=== PATIENT | male | born 1980 | race Caucasian/White ===

== ENCOUNTER 2019-02-03 14:09 | Inpatient (IN) ==
[2019-02-03] MEDS ORDERED: NS 1,000 ML IV ONE ×3 (15:13→18:14)
[2019-02-03] MEDS ORDERED: HUMULIN R IV ONE (15:13)
[2019-02-03 15:34] LABS: BASO# 0.08 X1000 (0.0-0.2); BASO% 0.4 % (0.0-0.8); EOS# 0.15 X1000 (0.0-0.7); EOS% 0.7 % (0.0-10.0); HEMATOCRIT 48.5 % (42.0-52.0); HEMOGLOBIN 16.5 g/dL (14.0-18.0); IMM GRAN# 0.09 X1000 (0.0-0.04); IMM GRAN% 0.4 % (0.0-0.5); LYMPH# 2.04 X1000 (1.2-3.4); LYMPH% 9.3 % (20.5-51.1); MCH 29.4 PG (27-31); MCV 86.5 FL (81-99); MONO# 1.39 X1000 (0.11-0.59); MONO% 6.4 % (1.7-9.3); MPV 12.6 FL (7.4-10.4); NEUT# 18.08 X1000 (1.4-6.5); NEUT% 82.8 % (42.2-75.2); PLT 224 X1000 (130-400); RBC 5.61 XMIL (4.7-6.1); RDW 13.6 % (11.5-14.5); WBC 21.83 X1000 (4.8-10.8)
[2019-02-03] MEDS ORDERED: XYLOCAINE 2% INJ ONE (15:42)
[2019-02-03 15:46] LABS: URINE SOURCE CLEAN CATCH
--- NOTE | 2019-02-03 15:50 | Diag Imaging Result Doc PS360 ---
CHEST-2 VIEWS - 02/03/2019 INDICATION: sob, sudden. COMPARISON: 05/14/2016 FINDINGS: There is a small focal infiltrate in the lingula. Heart size is normal. No pneumothorax or pleural effusion. IMPRESSION: Small focal infiltrate in the lingula suggesting pneumonia. Electronically signed by Slim Pineda 02/03/2019 3:48 PM
[2019-02-03 15:51] LABS: BILIRUBIN URINE NEGATIVE (NEGATIVE); BLOOD URINE TRACE (NEGATIVE); COLOR YELLOW; GLUCOSE URINE >1000 mg/dL (NEGATIVE); KETONE URINE 100 mg/dL (NEGATIVE); LEUKOCYTES URINE NEGATIVE (NEGATIVE); NITRITE URINE NEGATIVE (NEGATIVE); PH URINE 5.5; PROTEIN URINE TRACE mg/dL (NEGATIVE); SP GRAVITY URINE 1.034; TURBIDITY URINE CLEAR (CLEAR); UR EPITHELIAL CELLS <10 /HPF (<10); URINE BACTERIA NEGATIVE /HPF; URINE RBC <10 /HPF (<10); URINE WBC <10 /HPF (<10); UROBILINOGEN URINE NORMAL (NORMAL)
[2019-02-03] MEDS ORDERED: ROCEPHIN 1 GM in NS 50 ML IV ONE (15:58)
[2019-02-03] MEDS ORDERED: ROBAXIN 1,000 MG in NS 50 ML IV ONE ×2 (16:06→16:58)
[2019-02-03] MEDS ORDERED: MORPHINE IV ONE (16:12)
[2019-02-03 16:13] LABS: AGAP 24; ALB/GLOB RATIO 1.3; ALBUMIN 4.3 g/dL (3.5-5.0); ALKALINE PHOSPHATASE 118 U/L (32-122); AMYLASE 52 U/L (20-200); BUN 16 mg/dL (8-22); CALCIUM 9.6 mg/dL (8.8-10.2); CHLORIDE 89 mmol/L (98-107); COSMO 285; CREATININE 1.1 mg/dL (0.7-1.2); ESTIMATED GFR > 60; GLUCOSE 614 mg/dL (70-104); GOT 11 U/L (10-34); GPT 24 U/L (10-44); LIPASE 46 U/L (13-60); POTASSIUM 4.8 mmol/L (3.5-5.1); SODIUM 127 mmol/L (136-145); TCO2 14 mmol/L (25-35); TOTAL BILIRUBIN 0.54 mg/dL (0.20-1.00); TOTAL PROTEIN 7.7 g/dL (6.3-8.3)
--- NOTE | 2019-02-03 16:19 | EKG Report ---
Test Performed on : 02/03/2019 3:01:41 PM Test Reason : HIGH BLOOD SUGAR Blood Pressure : / mmHG Vent. Rate : 103 BPM Atrial Rate : 103 BPM P-R Int : 124 ms QRS Dur : 086 ms QT Int : 316 ms P-R-T Axes : 033 031 045 degrees QTc Int : 413 ms Sinus tachycardia. Otherwise normal ECG When compared with ECG of 30-OCT-2018 15:58, No significant change was found Unconfirmed Result
[2019-02-03] MEDS ORDERED: ROBAXIN 1,000 MG in NS 50 ML IM ONE (16:32)
[2019-02-03] MEDS ORDERED: MORPHINE IM ONE (16:32)
[2019-02-03 16:58] LABS: ALLEN TEST YES; BE -11.8 mmoll (-3.0-3.0); BLOOD TYPE ARTERIAL; HCO3-(ACT) 15.6 mmoll (20.0-26.0); METHB 0.5 % (0.0-1.5); O2(CT) 21.6 mL/dL (15.0-23.0); O2HB 93.2 % (95.0-99.0); PCO2(98.6) 23 mmHg (35-45); PO2(98.6) 73 mmHg (60-100); SAMPLE BLOOD; SAO2 96.3 % (95.0-100.0); THB 16.5 g/dL (11.5-17.4); pH(98.6) 7.32 (7.35-7.45)
[2019-02-03 17:00] LABS: MODALITY ROOM AIR
[2019-02-03] MEDS ORDERED: ZOFRAN IV PRN ×2 (18:10→22:00)
[2019-02-03] MEDS ORDERED: VANCOMYCIN IV PER PHARMACY MISC SCH (18:30)
--- NOTE | 2019-02-03 19:08 | HISTORY AND PHYSICAL ---
CHIEF COMPLAINT: High blood sugar, dizzy. HISTORY OF PRESENT ILLNESS: This is a 38-year-old gentleman with a history of diabetes mellitus and asthma. He presented to the emergency room complaining of elevated blood sugars, nausea, vomiting, dizziness, fever, shortness of breath. He stated that his brother last week and so now he is just going to eat what he wants. He has stopped taking his metformin. He was found to be in DKA. The patient refuses to take insulin stating that it causes him to have abdominal pain. He was found to have two abscesses on his posterior neck as well as 1 below his left knee. He carriesa history of MSSA in the past. PAST MEDICAL HISTORY: MSSA, diabetes mellitus, rheumatoid arthritis, asthma. PAST SURGICAL HISTORY: Denies. SOCIAL HISTORY: He denies alcohol, tobacco, or illicit drug use. ALLERGIES: Insulin which causes abdominal pain. HOME MEDICATIONS: A list will be obtained by the nursing staff and once verified, will review and restart it as appropriate. REVIEW OF SYSTEMS: Discussed with the patient with pertinent positives stated in the HPI. He denied any syncope, any chest pain, palpitations, productive cough, any black or bloody vomitus or black or bloody stools, any diarrhea, constipation, any hematuria, dysuria, frequency, urgency. PHYSICAL EXAMINATION: GENERAL: This is a 38-year-old gentleman who is sitting up in the bed in the emergency room in no distress. VITAL SIGNS: Blood pressure is 132/95, with a heart rate of 108, respirations are 21, temperature is 98.1, with room air sats 92-94%. EYES: Pupils equal, round, react to light. EOMs are intact. Sclerae anicteric. HEENT: Head is normocephalic, atraumatic. Mucous membranes are moist. NECK: Supple. Trachea midline. CARDIOVASCULAR: Regular rate and rhythm. S1 and S2 appreciated. He is tachycardic. He has no lower extremity edema with peripheral pulses palpable x 4 extremities. Calves are nontender bilateral to palpation. PULMONARY: Breath sounds are clear with no increased work of breathing noted. Chest rises and falls symmetric with respiration. GASTROINTESTINAL: Abdomen is soft, nontender, nondistended. Bowel sounds in all 4 quadrants. GENITOURINARY: He has no CVA or suprapubic tenderness. NEUROLOGIC: He is alert and oriented x 3. SKIN: Warm and dry with good turgor. He does have 2 abscesses noted to posterior neck and 1 below his left knee. LABS: WBC is 21.8, with hemoglobin 16.5, hematocrit 48.5, platelets of 224,000. D-dimer is 0.32. Sodium 127, potassium 4.8, BUN 16, creatinine 1.1, with a blood sugar of 614. Lactate is 1.4. Acetone is small. Influenza A and B are negative. Chest x-ray reveals pneumonia. ASSESSMENT AND PLAN: 1. Sepsis. Blood cultures have been obtained. Antibiotic coverage of Zosyn and vancomycin dosed per pharmacy. Further antibiotics will be culture driven. 2. Lingular pneumonia. As stated above. 3. Leukocytosis, secondary to #1 and #2. 4. Diabetic ketoacidosis. The patient has been given 2 L of fluid in the emergency room. We will give a 3rd. We will check a magnesium and phosphorus. We will check labs, monitor BMP, magnesium, and phosphorus. At present, the patient refuses insulin or insulin drip. Therefore, this will be discussed with Dr. Kinsey for further orders. 5. Diabetes mellitus in noncompliant patient. 6. Hyponatremia. We will trend his labs. Give saline and trend labs and follow. 7. Neck abscess and knee abscess. Incision and drainage was performed by the emergency room physician. Cultures, antibiotics stated above. We will give Zofran for nausea, Prilosec for PPI. Further treatments pending hospital course. Dictated by GEETA Flood for Jose Kinsey MD cc: GEETA Flood MD I agree with the components of history, physical, assessment and plan mentioned above. A separate addendum has been dictated. [facility]
[2019-02-03] MEDS: ZOSYN 3.375 GM in NS 50 ML IV SCH (19:11)
[2019-02-03 19:18] LABS: MAGNESIUM 1.9 mg/dL (1.5-2.7); PHOSPHORUS 3.9 mg/dL (2.7-4.5)
[2019-02-03 19:32] LABS: AGAP 23; ALBUMIN 4.1 g/dL (3.5-5.0); BUN 17 mg/dL (8-22); CALCIUM 9.3 mg/dL (8.8-10.2); CHLORIDE 93 mmol/L (98-107); COSMO 278; CREATININE 1.1 mg/dL (0.7-1.2); ESTIMATED GFR > 60; GLUCOSE 475 mg/dL (70-104); PHOSPHORUS 4.1 mg/dL (2.7-4.5); POTASSIUM 4.7 mmol/L (3.5-5.1); SODIUM 127 mmol/L (136-145); TCO2 11 mmol/L (25-35)
[2019-02-03] MEDS ORDERED: HUMALOG SUBQ ONE (20:01)
[2019-02-03] MEDS ORDERED: NS 1,000 ML ONE (20:29)
--- NOTE | 2019-02-03 20:36 | Diag Imaging Result Doc PS360 ---
KNEE 1-2 VIEWS-LEFT - 02/03/2019 INDICATION: Evaluate for bony cyst on left leg TECHNIQUE: Two views COMPARISON: None FINDINGS: There is a smooth oval rounded soft tissue density in the superficial anterior knee soft tissues. This measures about 5.5 x 2.5 cm. No bony changes. IMPRESSION: Soft tissue density cyst or mass in the superficial pretibial soft tissues. No bony changes. Electronically signed by Slim Pineda 02/03/2019 8:33 PM
[2019-02-03] MEDS: HUMALOG SUBQ SCH ×2 (21:00→22:22)
--- NOTE | 2019-02-03 21:55 | HISTORY AND PHYSICAL ---
ADDENDUM: I agree with most components of history, physical, assessment and plan. In brief, Mr. Reed is a 38 years old man with history of morbid obesity, utt-[id number] diabetes mellitus, medication noncompliance, who came to this hospital because of hyperglycemia and nausea. He was found to have diabetic ketoacidosis and neck abscess, which required incision and drainage. He was also found to have left-sided lower lobe pneumonia. SUBJECTIVE: At the time of my evaluation, he is feeling a little better than he was before. He continues to have polydipsia and polyuria. Discussed about his diagnosis, treatment and management. Apparently, he was given intravenous insulin following which he started complaining of excruciating abdominal and body cramps, and he refuses to take any more insulin. I discussed with him about DKA, possible complications and life-threatening nature of his disease and the fact that we could potentially take care of muscle cramps with muscle relaxants; however, despite understanding it, he refuses to take IV insulin so we decided to start him on subcutaneous insulin. PHYSICAL EXAMINATION: VITAL SIGNS: Temperature of 98.1 degrees, pulse of 107, respiratory rate 24, blood pressure 140/102, saturating 92% on room air. GENERAL: Morbidly obese not in any acute distress. HEENT: Oral cavity is dry. Thick. CHEST WALL: Makes examination difficult. CARDIOVASCULAR: S1, S2 normal. No murmur, rub, or gallop. LUNGS: Air entry bilaterally equal. No wheeze, rhonchi, or crackles. ABDOMEN: Obese. No lower extremity edema. He does have about a 5 x 5 cm soft mildly tender cyst affecting left anterior leg around tibial tuberosity. He also has a dressing on the nape of his neck. Input and output not charted. LABORATORY DATA: Suggestive of leukocytosis. Normal hemoglobin, hematocrit, platelet count, hyponatremia, hypochloremia, hyperglycemia, elevated anion gap and low bicarbonate in the setting of DKA with ketonuria. MICROBIOLOGY: Blood cultures have not been drawn yet. IMAGING: Chest x-ray had suggested left-sided lower lobe pneumonia. ASSESSMENT: 1. Sepsis in the setting of left lower lobe pneumonia as well as neck abscess. 2. Diabetic ketoacidosis with medication noncompliance. 3. Subjective complaints of intractable abdominal and generalized body cramps after IV insulin. 4. Persistent asthma, likely mild with acute exacerbation. PLAN: I will start patient on intravenous vancomycin and intravenous Zosyn. We will follow up with urine antigens, sputum culture and blood culture results and modify antibiotics for his pneumonia as well as neck abscess, which he developed after appears to be infected follicle. The patient refuses to take IV insulin. I will start him on DKA protocol for intravenous fluids and electrolyte replacement, and I will start him on subcutaneous insulin. We will continue current dose of subcutaneous insulin until his blood sugar is less than 250 at which point we will make subcutaneous insulin dose to half. Plan of care discussed with the patient. All of his questions have been answered. cc: Jose Kinsey MD MTDD
[2019-02-03] MEDS ORDERED: POTASSIUM CHLORIDE 10% LIQUID PO PRN (22:00)
[2019-02-03] MEDS ORDERED: D50W SYRINGE IV PRN (22:00)
[2019-02-03] MEDS ORDERED: SODIUM BICARBONATE 8.4% 100 MEQ in STERILE WATER INJ. 500 ML IV PRN (22:00)
[2019-02-03] MEDS ORDERED: POTASSIUM CHLORIDE 20% LIQUID PO PRN (22:00)
[2019-02-03] MEDS ORDERED: MAGNESIUM SULFATE 2 GM/S.W.I. 2 GM/50 ML IVPB IV PRN (22:00)
[2019-02-03] MEDS ORDERED: SODIUM PHOSPHATE 30 MMOL in D5W 250 ML IV PRN (22:00)
[2019-02-03] MEDS ORDERED: POTASSIUM CHLORIDE 20 MEQ/SWI 20 MEQ/100 ML IVPB IV PRN (22:00)
[2019-02-03] MEDS ORDERED: POTASSIUM CHLORIDE 40 MEQ/SWI 40 MEQ/100 ML IVPB IV PRN (22:00)
[2019-02-03] MEDS: VANCOMYCIN 2 GM in NS 500 ML IV SCH (22:22)
[2019-02-03] MEDS: NS 1,000 ML IV SCH (22:23)
[2019-02-03 22:36] LABS: ESTIMATED GFR > 60
[2019-02-03] MEDS: ROBAXIN 500 MG in NS 50 ML IV SCH (22:49)
[2019-02-03 22:50] LABS: AGAP 22; ALBUMIN 3.9 g/dL (3.5-5.0); BUN 15 mg/dL (8-22); CALCIUM 8.7 mg/dL (8.8-10.2); CHLORIDE 98 mmol/L (98-107); COSMO 284; CREATININE 0.9 mg/dL (0.7-1.2); GLUCOSE 369 mg/dL (70-104); PHOSPHORUS 3.7 mg/dL (2.7-4.5); SODIUM 134 mmol/L (136-145); TCO2 14 mmol/L (25-35)
[2019-02-03] MEDS: ALBUTEROL NEB INH SCH (23:20)
[2019-02-03] MEDS ORDERED: ATIVAN IV ONE (23:25)
--- NOTE | 2019-02-03 23:29 | PROVIDER DOCUMENTATION ---
This chart was entered by Samantha Nieto Scribe, acting as scribe for Gianna Tafoya MD. HPI-General Adult - General Chief Complaint: High Blood Sugar Stated Complaint: HIGH BLOOD SUGAR,DIZZY,SOB Time Seen by Provider: 02/03/19 14:51 Source: patient Allergies/Adverse Reactions: Patient Allergies Allergy/AdvReac Type Severity Reaction Status Date / Time Insulins AdvReac Unknown Verified 02/03/19 18:02 Home Medications: Home Medication List Medication Instructions Recorded Confirmed Last Taken Type Cyclobenzaprine [Flexeril] 10 mg PO TID #20 tab 10/30/18 Unknown Rx Metformin [Glucophage] 1,000 mg PO BID #120 tab 10/30/18 02/03/19 Unknown Rx Naproxen Sodium [Anaprox Ds] 550 mg PO Q12H PRN #20 tab 10/30/18 Unknown Rx - History of Present Illness -Gen Adult Nature of Presenting Problems: 38 yom presents to ed with an elevated FSBG 576 and sts brother last week and now "Im just going to eat what I want to eat" pt has epigastric pain with n/v x2, dizziness, SOB, blurry vision, recent fever 100.2, abscess on posterior neck x2 and abscess below left knee. pt sts sx have been present with abdominal pain elevated BGL and n/v for 1 week Location of Pain/Injury: reports: neck (posterior), abdomen (epigastric), lower extremity (left knee) Quality of Pain: reports: aching, fullness Severity: reports: moderate Onset/Duration: reports: 1 week ago Timing: reports: still present, intermittent Context/Activities at Onset: reports: light activity Modifying Factors: improves with: nothing. worse with: movement, palpation Associated Symptoms: reports: dizziness, EENT symptoms, fever/chills, malaise, nausea, shortness of breath, vomiting. denies: back/neck pain, chest pain Similar Symptoms Previously?: Yes Recently seen or treated by another doctor?: No - Diabetes Related Context Context: reports: high blood sugar Review of Systems - Adult - REVIEW OF SYSTEMS - ADULT Constitutional: reports: no symptoms reported Eyes: reports: see HPI, blurred vision Ears, Nose, Mouth & Throat: reports: no symptoms reported Cardiovascular: denies: chest pain, palpitations Respiratory: reports: see HPI, shortness of breath. denies: wheezing Gastrointestinal: reports: see HPI, abdominal pain, nausea, vomiting. denies: diarrhea Genitourinary: reports: no symptoms reported Musculoskeletal: reports: no symptoms reported Integumentary: reports: see HPI, skin sores/ulcer Neurological: reports: see HPI, dizziness/vertigo Psychiatric: reports: no symptoms reported Endocrine: reports: no symptoms reported Hematologic/Lymphatic: reports: no symptoms reported Allergic/Immunologic: reports: no symptoms reported Past History - Adult - PAST MEDICAL HISTORY-ADULT Review of Records: reports: Nursing Assessment Review, Medications Reviewed Major Childhood Illnesses: reports: denies history Cardiovascular: reports: denies history Respiratory: reports: asthma Gastrointestinal: reports: denies history Genitourinary: reports: denies history Musculoskeletal: reports: arthritis (RA), chronic pain Neurological: reports: denies history Psychiatric: reports: denies history Endocrine/Immune: reports: denies history, Diabetes, RA Diabetes Type: Type 2 Other Conditions: reports: denies history - PRIOR SURGERIES/PROCEDURES Surgical/Procedure History: reports: reviewed, not pertinent - IMMUNIZATION STATUS Childhood Immunizations: See Nurse Assessment Flu Vaccine: See Nurse Assessment - FAMILY HISTORY Family History: reviewed, not pertinent - SOCIAL HISTORY Smoking: quit greater than 1 year Substance Use: denies Alcohol Use Frequency: never Living Situation: family Physical Exam-General - PHYSICAL EXAM-ADULT Initial Vital Signs Reviewed: Yes - CONSTITUTIONAL General Appearance: alert, obese. negative: appears well - EYES Eyes: PERRL/EOMI - HEAD, EARS, NOSE, MOUTH & THROAT HENMT: moist mucous membranes, normal ENT inspection - NECK Neck: full range of motion, supple, other (6x3 cm fluctuant mass, TTT) - RESPIRATORY Respiratory: chest non-tender, lungs clear, normal breath sounds - CARDIOVASCULAR Cardiovascular: normal peripheral pulses, tachycardia (107) - GASTROINTESTINAL (ABDOMEN) Abdominal Exam: normal bowel sounds, non tender, soft - MUSCULOSKELETAL Back Exam: normal inspection, no CVA tenderness, no vertebral tenderness Extremity: normal range of motion, non-tender, no calf tenderness, normal capill ray refill, pelvis stable - SKIN Integumentary: normal color, normal turgor, warm/dry, tenderness (2x2 cm scalp abscess occipital (right side)) - NEUROLOGIC Neurologic: grossly normal, no motor/sensory deficits - PSYCHIATRIC Psych/Mental Status: normal mood/affect, normal thought content, normal thought process, oriented x 3 Progress - PLAN OF CARE/RESULTS Progress/Plan/Lab Results: Vital Signs - 8 hr 02/03/19 14:41 Temperature 98.1 F Pulse Rate 107 H Respiratory Rate 20 Blood Pressure 128/86 O2 Sat by Pulse Oximetry 95 Laboratory Results - last 24 hr 02/03/19 15:07 WBC 21.83 H RBC 5.61 Hgb 16.5 Hct 48.5 MCV 86.5 MCH 29.4 MCHC 34.0 RDW Std Deviation 13.6 Plt Count 224 MPV 12.6 H Immature Gran % (Auto) 0.4 Neut % (Auto) 82.8 H Lymph % (Auto) 9.3 L [place] % (Auto) 6.4 Eos % (Auto) 0.7 Baso % (Auto) 0.4 Immature Gran # (Auto) 0.09 H Neut # (Auto) 18.08 H Lymph # (Auto) 2.04 [place] # (Auto) 1.39 H Eos # (Auto) 0.15 Baso # (Auto) 0.08 Orders Category Date Time Status cxr [CHEST-2 VIEWS] [RAD] Stat Exams 02/03/19 15:17 Ordered AMYLASE [CHEM] Stat Lab 02/03/19 15:07 Received CBC WITH ELECTRONIC DIFF [HEME] Stat Lab 02/03/19 15:07 Results COMPREHENSIVE METABOLIC PANEL [CHEM] Stat Lab 02/03/19 15:07 Received D-DIMER [COAG] Stat Lab 02/03/19 15:07 Received Flu Swab [INFLUENZA SCREEN A/B] Stat Lab 02/03/19 15:07 Received LACTATE, PLASMA [CHEM] Stat Lab 02/03/19 15:07 Received LIPASE [CHEM] Stat Lab 02/03/19 15:07 Received TROPONIN T Stat Lab 02/03/19 15:07 Received URINALYSIS W/POSS RFLX CULT [URINALYSIS] Stat Lab 02/03/19 15:15 Uncollected 0.9% Sodium Chloride Inj [Ns] 1,000 ml Med 02/03/19 15:13 Active IV 999 mls/hr Insulin Human Regular [Humulin R] Med 02/03/19 15:13 Discontinued 8 unit IV NOW ONE EKG [EKG] Stat Ther 02/03/19 15:16 Ordered Patient decline draining the other small abscess in the scalp Patient with DKA and pneumonia had severe back pain and sweating after insulin R IV, refuse further insulin. DRY WALL NAILER Anh informed and she will follow with Dr. Dickerson. Patient care, assessment and plan discussed with the attending physician Dr. Chowdary and he agree with the plan as documented. Result Diagrams: 02/03/19 15:07 02/03/19 15:07 - REASSESSMENT Reassessment #1 Time Reassessed: 15:59 Status: unchanged Reassessment #2 Time Reassessed: 16:45 Status: unchanged - XRAY 1 XRAY: Bilateral XRAY Study: Chest Impression: See EMR Report (CHEST-2 VIEWS - 02/03/2019 INDICATION: sob, sudden. COMPARISON: 05/14/2016 FINDINGS: There is a small focal infiltrate in the lingula. Heart size is normal. No pneumothorax or pleural effusion. IMPRESSION: Small focal infiltrate in the lingula suggesting pneumonia. Electronically signed by Slim Pineda 02/03/2019 3:48 PM 02/03/19 1548 Inter preting Physician: Slim Pineda MD Dictated Date/Time: 02/03/19 1547 cc: Gianna Tafoya MD; None,PCP) - CONSULTS/PCP/HOSPITALIST Notification #1 *Consult/PCP/Hospitalist*: JOHAN Kamara admitting for hospitalist Dr. dickerson Time Discussed: 16:45 Consult Disposition: Admit (Hx, PE and patient care discussed, accepted.) Procedures - INCISION & DRAINAGE Site: Neck below hair line left to midline Abscess Type: Subcutaneous Prepped with: Hibiclens, Chlorhexidine, Sterile Drapes Applied Anesthetic: 2% Volume of Anesthetic (ml's): 5 Blade Size: 11 (2 cm vertical incision done) Packing placed?: Yes Sterile Dressing Applied?: Yes Drainage: Large Amount, Purulent Procedure Comment: Well tolerated Departure - Departure Date of Disposition Decision: 02/03/19 Time of Disposition Decision: 16:50 DIAGNOSIS: Neck abscess Pneumonia Qualifiers: Pneumonia type: due to unspecified organism Laterality: unspecified laterality Lung location: unspecified part of lung Qualified Code(s): J18.9 - Pneumonia, unspecified organism DKA (diabetic ketoacidoses) Qualifiers: Diabetes mellitus type: type 2 Diabetes mellitus complication detail: without coma Qualified Code(s): E11.10 - Type 2 diabetes mellitus with ketoacidosis without coma Disposition: ADMITTED INPATIENT 09 Certified Medical Emergency: Emergent Condition: Stable Referrals and Follow-Ups: None,PCP [Primary Care Provider] - - Critical Care Note This patient required my direct & personal management of CC.: Yes Total Time (mins): 39 Critical Care Statement: This patient required my direct personal management to treat or rule out processes, the absence of which, could potentiallly result in sudden, clinically significant life or limb threatening deterioration. Attestation - Physician/ [place] Attestation Patient care was provided by Advanced Practice Provider:: No The physician spent face to face time with patient:: Yes Advanced Practice Provider documentation review:: Supervising physician onsite and consulted in the evaluation and care of this patient. The physician did have a face to face encounter with the patient. This chart was documented by the indicated scribe, (Samantha Nieto Scribe) and accurately reflects the services I performed and decisions made by me, Gianna Zarate MD, as attested by the provider's signature.
[2019-02-04] MEDS: HUMALOG SUBQ SCH ×12 (00:40→22:35)
[2019-02-04] MEDS: ZOSYN 3.375 GM in NS 50 ML IV SCH ×2 (01:16→06:19)
[2019-02-04] MEDS: D5 NS 1,000 ML IV SCH ×2 (01:30→07:29)
[2019-02-04] MEDS: NS 1,000 ML IV SCH ×3 (01:59→09:27)
[2019-02-04] MEDS: TYLENOL PO PRN ×2 (02:27→13:13)
[2019-02-04] MEDS: ALBUTEROL NEB INH SCH ×6 (02:40→23:25)
[2019-02-04 02:48] LABS: ESTIMATED GFR > 60
[2019-02-04 02:53] LABS: AGAP 18; ALBUMIN 3.6 g/dL (3.5-5.0); BUN 14 mg/dL (8-22); CALCIUM 8.6 mg/dL (8.8-10.2); CHLORIDE 103 mmol/L (98-107); COSMO 276; CREATININE 0.8 mg/dL (0.7-1.2); GLUCOSE 205 mg/dL (70-104); POTASSIUM 3.6 mmol/L (3.5-5.1); SODIUM 135 mmol/L (136-145); TCO2 14 mmol/L (25-35)
[2019-02-04 03:35] LABS: ALLEN TEST YES; BE -7.4 mmoll (-3.0-3.0); BLOOD TYPE ARTERIAL; METHB 1.1 % (0.0-1.5); O2(CT) 19.7 mL/dL (15.0-23.0); O2HB 92.4 % (95.0-99.0); PCO2(98.6) 33 mmHg (35-45); PO2(98.6) 69 mmHg (60-100); SAMPLE BLOOD; THB 15.2 g/dL (11.5-17.4); pH(98.6) 7.33 (7.35-7.45)
[2019-02-04 03:40] LABS: MODALITY ROOM AIR
[2019-02-04] MEDS: ROBAXIN 500 MG in NS 50 ML IV SCH ×4 (04:24→22:35)
[2019-02-04 05:41] LABS: BASO# 0.04 X1000 (0.0-0.2); BASO% 0.2 % (0.0-0.8); EOS# 0.19 X1000 (0.0-0.7); EOS% 1.1 % (0.0-10.0); HEMATOCRIT 40.3 % (42.0-52.0); HEMOGLOBIN 13.9 g/dL (14.0-18.0); IMM GRAN# 0.09 X1000 (0.0-0.04); IMM GRAN% 0.5 % (0.0-0.5); LYMPH# 2.45 X1000 (1.2-3.4); LYMPH% 14.8 % (20.5-51.1); MCH 30.4 PG (27-31); MCHC 34.5 g/dL (33-37); MCV 88.2 FL (81-99); MONO# 1.31 X1000 (0.11-0.59); MONO% 7.9 % (1.7-9.3); MPV 12.4 FL (7.4-10.4); NEUT# 12.52 X1000 (1.4-6.5); NEUT% 75.5 % (42.2-75.2); PLT 172 X1000 (130-400); RBC 4.57 XMIL (4.7-6.1); RDW 13.7 % (11.5-14.5)
[2019-02-04 05:45] LABS: HEMOGLOBIN A1C 12.9 % (4.8-6.0)
[2019-02-04 06:03] LABS: AGAP 14; ALBUMIN 3.3 g/dL (3.5-5.0); ALKALINE PHOSPHATASE 82 U/L (32-122); BUN 13 mg/dL (8-22); CALCIUM 8.5 mg/dL (8.8-10.2); CHLORIDE 103 mmol/L (98-107); COSMO 277; CREATININE 0.9 mg/dL (0.7-1.2); ESTIMATED GFR > 60; GLUCOSE 214 mg/dL (70-104); GOT 11 U/L (10-34); GPT 17 U/L (10-44); MAGNESIUM 1.7 mg/dL (1.5-2.7); POTASSIUM 3.3 mmol/L (3.5-5.1); SODIUM 135 mmol/L (136-145); TCO2 18 mmol/L (25-35); TOTAL BILIRUBIN 0.34 mg/dL (0.20-1.00); TOTAL PROTEIN 6.5 g/dL (6.3-8.3)
[2019-02-04 06:04] LABS: AGAP 15; ALBUMIN 3.5 g/dL (3.5-5.0); BUN 13 mg/dL (8-22); CALCIUM 8.6 mg/dL (8.8-10.2); CHLORIDE 103 mmol/L (98-107); COSMO 277; CREATININE 0.8 mg/dL (0.7-1.2); ESTIMATED GFR > 60; GLUCOSE 196 mg/dL (70-104); PHOSPHORUS 3.8 mg/dL (2.7-4.5); POTASSIUM 3.4 mmol/L (3.5-5.1); SODIUM 136 mmol/L (136-145); TCO2 18 mmol/L (25-35)
[2019-02-04] MEDS: PRILOSEC PO SCH (06:27)
[2019-02-04] MEDS ORDERED: LIORESAL PO ONE (08:14)
[2019-02-04] MEDS: VANCOMYCIN 2 GM in NS 500 ML IV SCH (08:23)
[2019-02-04 11:05] LABS: AGAP 13; ALBUMIN 3.2 g/dL (3.5-5.0); BUN 11 mg/dL (8-22); CALCIUM 8.3 mg/dL (8.8-10.2); CHLORIDE 106 mmol/L (98-107); COSMO 279; CREATININE 0.8 mg/dL (0.7-1.2); ESTIMATED GFR > 60; GLUCOSE 211 mg/dL (70-104); PHOSPHORUS 3.4 mg/dL (2.7-4.5); POTASSIUM 3.7 mmol/L (3.5-5.1); SODIUM 137 mmol/L (136-145); TCO2 18 mmol/L (25-35)
[2019-02-04] MEDS: LEVAQUIN PO SCH (11:05)
[2019-02-04] MEDS ORDERED: CEPACOL SORE THROAT LOZENGE MT PRN (11:26)
--- NOTE | 2019-02-04 12:12 | PROGRESS NOTE ---
DATE: 02/04/2019 INTERVAL HISTORY: No acute overnight events. He was tolerating subcutaneous insulin without any trouble. SUBJECTIVE: He states that he is feeling sleep deprived. OBJECTIVE: Vital Signs: Temperature 98.5 degrees, pulse 85, respiratory rate 15, blood pressure 135/77, saturating 100% on room air. General: Morbidly obese. Not in any acute distress. HEENT: Oral cavity is dry. Chest: Thick chest wall but air entry appears equal bilaterally on limited chest examination without wheeze, rhonchi, or crackles. Cardiovascular: S1, S2 normal. No murmur, rub, or gallop. Abdomen: Obese, nontender. Extremities: No lower extremity edema. He has about 3 x 5 cm soft fluctuant cysts affecting anterior leg around the tibial tuberosity. On his nape of neck, he has an abscess which was drained. I removed the dressing. It still has some pus material coming out and Surgery team has been consulted. LABORATORY DATA: Suggestive of improving leukocytosis. ABG suggestive of improving pH with pH of 7.33. His electrolytes suggest mild hypokalemia, improving bicarbonate and decreasing anion gap. Microbiology: Blood culture and sputum culture are in lab. Influenza screen was negative. Wound culture has been ordered. ASSESSMENT AND PLAN: 1. Sepsis in the setting of left lower lobe pneumonia as well as neck abscess. Follow up blood cultures, sputum culture and wound culture results. Continue intravenous vancomycin and start the patient on levofloxacin. 2. Diabetic ketoacidosis in the setting of current sepsis as well as medication noncompliance with hemoglobin A1c of 12. The patient was counseled about need for being compliant and weight reduction. Continue current dose of subcutaneous insulin and follow up with sequential BMP. When his anion gap closes, my plan is to start him on basal bolus regimen. I will continue to replete his electrolytes and intravenous fluids according to diabetic ketoacidosis protocol. 3. Muscle cramps. Continue methocarbamol intravenous and 1 time baclofen. 4. Acute exacerbation of what appears to be moderate to severe persistent asthma. Currently, he is no longer wheezing, so I will continue albuterol ipratropium nebulization. In future, I might consider steroids. However, considering his ongoing sepsis, diabetic ketoacidosis and no wheezing on examination, I am holding off. 5. Abscess over back s/p Incision and drainage in ER. He still has pus oozing out of it. Considering his diabetes, i will consult surgeon to establish care and outpatient follow up. I will also appreciate surgery team recs on left leg cyst. DISPOSITION: The patient continues to remain in [facility]. Plan of care discussed with him. All of his questions have been answered. cc: Jose Kinsey MD MTDD
[2019-02-04] MEDS: LANTUS INSULIN SUBQ SCH ×2 (13:05→22:34)
[2019-02-04] MEDS ORDERED: NS 500 ML ONE (17:35)
--- NOTE | 2019-02-04 20:16 | GENERAL SURGERY CONSULTATION ---
DATE: 02/04/2019 REASON FOR CONSULTATION: Neck abscess and cyst on the leg. HISTORY OF PRESENT ILLNESS: This is a 38-year-old male who presented to the hospital last night with diabetic ketoacidosis. He was symptomatic with nausea, vomiting, dizziness, fever, shortness of breath. He also had an abscess on his posterior neck that was red, swollen, and tender and a large cyst on his left lower leg that had been present for years and waxed and waned in size and severity. PAST MEDICAL HISTORY: MSSA, diabetes, rheumatoid arthritis, asthma, noncompliance. PAST SURGICAL HISTORY: None. ALLERGIES: Insulin. SOCIAL HISTORY: Negative for tobacco, alcohol or illicit drug use. CURRENT MEDICATIONS: Tylenol, albuterol, glargine, lispro, Levaquin, methocarbamol, vancomycin, Zofran, Prilosec. REVIEW OF SYSTEMS: Ten systems reviewed and negative except as noted above. PHYSICAL EXAMINATION: Vital Signs: Temperature 98.5 degrees, pulse 85, respirations 15, blood pressure 135/77, and O2 saturation 100%. General: Well-developed, obese male in no distress, who looks his stated age. HEENT: Normocephalic, atraumatic. Extraocular muscles intact. Pupils equal, round, reactive to light. Sclerae anicteric. Neck: Supple no thyromegaly. Cardiovascular: Regular rate and rhythm. Respiratory: Bilateral breath sounds. No work of breathing. Gastrointestinal: Soft, obese. No organomegaly or mass. Nontender. Extremities: There is a large fluid-filled epidermal cyst of the left lower anterior leg. There is no overlying erythema, warmth, or induration. Skin: There is evidence of an incision and drainage on the posterior neck with some surrounding redness and erythema. No purulent fluid is seen at this time. LABORATORY DATA: White blood cell count 16, hemoglobin 13.9, hematocrit 40. Glucose 211, hemoglobin A1c 12.9. ASSESSMENT AND PLAN: A 38-year-old male with posterior neck skin abscess status post I and D in the emergency room and left lower extremity epidermal cyst. We will monitor the progress and healing of the neck abscess. At this time there are no further surgical plans for it. He has asked me to drain the cyst in his leg, which we can attempt to do at the bedside during this admission. cc: Mart Becker MD
[2019-02-05] MEDS: ALBUTEROL NEB INH SCH ×3 (04:01→11:22)
[2019-02-05 06:09] LABS: BASO# 0.03 X1000 (0.0-0.2); BASO% 0.2 % (0.0-0.8); EOS# 0.19 X1000 (0.0-0.7); EOS% 1.6 % (0.0-10.0); HEMATOCRIT 38.8 % (42.0-52.0); HEMOGLOBIN 13.3 g/dL (14.0-18.0); IMM GRAN# 0.09 X1000 (0.0-0.04); IMM GRAN% 0.7 % (0.0-0.5); LYMPH# 1.83 X1000 (1.2-3.4); MCH 30.6 PG (27-31); MCHC 34.3 g/dL (33-37); MCV 89.4 FL (81-99); MONO# 0.98 X1000 (0.11-0.59); MPV 12.5 FL (7.4-10.4); NEUT# 9.09 X1000 (1.4-6.5); NEUT% 74.5 % (42.2-75.2); PLT 156 X1000 (130-400); RBC 4.34 XMIL (4.7-6.1); RDW 13.8 % (11.5-14.5); WBC 12.21 X1000 (4.8-10.8)
[2019-02-05] MEDS: PRILOSEC PO SCH (06:24)
[2019-02-05] MEDS: ROBAXIN 500 MG in NS 50 ML IV SCH ×2 (06:24→12:16)
[2019-02-05] MEDS: HUMALOG SUBQ SCH ×4 (06:25→11:54)
[2019-02-05 06:29] LABS: AGAP 14; BUN 6 mg/dL (8-22); CALCIUM 8.1 mg/dL (8.8-10.2); CHLORIDE 108 mmol/L (98-107); COSMO 286; CREATININE 0.8 mg/dL (0.7-1.2); ESTIMATED GFR > 60; GLUCOSE 254 mg/dL (70-104); MAGNESIUM 2.1 mg/dL (1.5-2.7); PHOSPHORUS 3.4 mg/dL (2.7-4.5); POTASSIUM 3.4 mmol/L (3.5-5.1); SODIUM 140 mmol/L (136-145); TCO2 18 mmol/L (25-35)
[2019-02-05] MEDS: LEVAQUIN PO SCH (08:32)
[2019-02-05] MEDS ORDERED: VANCOMYCIN 2 GM in NS 500 ML IV SCH (09:00)
[2019-02-05] MEDS: LANTUS INSULIN SUBQ SCH (11:57)
[2019-02-05 12:27] VITALS: BP 147/70
--- NOTE | 2019-02-05 13:30 | GENERAL SURGERY PROGRESS NOTE ---
DATE: 02/05/2019 SUBJECTIVE: The patient continues to have pain in his posterior neck and left leg cyst area OBJECTIVE: He is afebrile. Vital signs are stable.General: He is awake and alert and oriented x3. No acute distress. Skin: The left neck was examined. There is an incision site where there is scant purulent drainage. There is surrounding edema, induration, redness, and tenderness, but it is not overly fluctuant. The left leg cyst has no erythema. It feels like it is a large fluid- filled epidermal cyst. I did clean the skin with alcohol and attempted to aspirate the cyst with an 18-gauge needle and syringe; however, I could not obtain any fluid. LABORATORY: White cell count 12,000. Electrolytes reviewed and notable for blood sugars still in the mid 200s. ASSESSMENT AND PLAN: A 38-year-old male with: 1. Infected epidermal cyst of the neck, status post incision and drainage. This is improving. Continue the antibiotics. No further surgical plans at this time for that lesion. 2. The lesion on his leg also is not infected and does not require any urgent treatment, but in the future, we could do an outpatient excision of his leg cyst and neck cyst. cc: Mart Becker MD
--- NOTE | 2019-02-05 14:37 | DISCHARGE SUMMARY ---
ADMISSION DATE: 02/03/2019 DISCHARGE DATE: 02/05/2019 DISCHARGE DISPOSITION: Home. CONDITION AT DISCHARGE: Stable on diabetic diet. Alert, oriented, able to come out of bed, walk around without anyone's support. DISCHARGE DIAGNOSIS: 1. Diabetic ketoacidosis. 2. Sepsis in the setting of lower lobe pneumonia due to MSSA and neck abscess with MSSA . 3. Muscle cramps likely in the setting of electrolyte abnormalities. 4. Acute exacerbation of moderate to severe persistent asthma. 5. Abscess over nape of neck. 6. Epidermal cyst of left valle. OTHER DIAGNOSIS: 1. History of type 2 diabetes mellitus with noncompliance with medication. 2. Morbid obesity. 3. History of asthma. 4. Left hip osteoarthritis. DISCHARGE MEDICATIONS: Naproxen 550 mg every 12 hours as needed for pain, doxycycline 100 mg b.i.d. 12 tablets have been prescribed, Levaquin 750 mg daily x 7 days cyclobenzaprine 10 mg t.i.d., metformin 1000 mg b.i.d., insulin NPH 70/30 50 units every 12 hours 30 day supply has been prescribed, omeprazole 40 mg daily, 5 capsules have been prescribed. VITALS: At the time of discharge temperature 98.2 degrees, pulse 91, respiratory 17, blood pressure 138/85, saturating 96% on room air. PHYSICAL EXAMINATION: Morbidly obese, not in any acute distress. Oral cavity is moist. He does have thick chest wall so the physical examination restricted. Air antibiotic bilateral equal. No wheeze, rhonchi, crackles. S1, S2 normal. No murmur or gallop. Abdomen is soft, nontender. No lower extremity edema. He does have open incision at back of the neck which is bringing about minimum pussy discharge. He also has an epidermal cyst of left valle and anterior aspect. SIGNIFICANT LABS: His WBC count was 21,000 on admission which had decreased to 12,000 at the time of discharge, his hemoglobin was 13.3 and platelet of 156,000. On admission he had elevated anion gap metabolic acidosis with anion gap of 24, hyponatremia, hypochloremia, BUN of 16, creatinine of 1.1, blood glucose of 614 and bicarbonate of 14. At the time of discharge his sodium was 140, potassium of 3.4, chloride of 108, bicarbonate of 18, anion gap of 14, BUN of 6, creatinine of 0.8, his blood sugar was 262. Hemoglobin A1c was 12.2. Significant microbiology, his sputum culture did not show any growth at the time of discharge. Blood culture was no growth till date. Influenza screen was negative. Wound culture from his back of the neck had a gram-positive cocci but the final culture was pending. SIGNIFICANT IMAGING: Chest x-ray on admission had small focal infiltrate in the lingula suggesting pneumonia. The knee x-ray had suggested soft tissue density cyst or mass in the superficial pretibial soft tissue without any bony changes. HOSPITAL COURSE SUMMARY: Mr. Reed is 38-year-old man with past history of diabetes and asthma who came in because of chief complaint of nausea, not feeling well, very high blood sugar and dizziness of about 2 days duration. Apparently the patient's younger brother had 4 weeks prior to patient's presentation and patient had a significant grief response to that and he had stopped taking his medicines. Right before presentation he had just started back on his metformin. However, he was only taking half a dose what he was supposed to. He slowly started developing polyuria, polydipsia, nausea, dizziness and so he presented to the emergency room. In the emergency room he was found to be afebrile, tachycardic, normotensive and breathing well on room air and prelim investigation including chest x-ray had suggested left lower lobe pneumonia as well as increased anion gap metabolic acidosis with ketonuria suggestive of diabetic ketoacidosis. He also was found to have an abscess in the back of his neck and he underwent incision and drainage at the emergency room and hospitalist team was consulted for further management. The patient was given intravenous insulin according to DKA protocol in the emergency room and he started developing excruciating abdominal cramps and generalized body cramps and he told us that he previously had cramps because of insulin and had refused to take IV insulin. After explaining to him benefits versus risks we had decided to start him on subcutaneous insulin considering his acidosis was mild according to DKA protocol. He was kept on subcutaneous insulin, intravenous fluids and electrolyte protocol according to DKA protocol following which his DKA had resolved. At the time of discharge his blood sugars were reasonably well controlled on insulin glargine and subcutaneous insulin doses. The patient has not had insurance and he states that it might be costly for him so at the time of discharge, attempts were made to figure out if insulin glargine versus NPH would be cost-effective for him and accordingly he will be discharged. He was continued on his home metformin at the time of discharge, was advised to follow up with his regular doctor. Education was provided about weight reduction and diet for diabetes. He was found to have abscess on back of the neck at the time of admission, which was thought to have happened because of infected follicle and he underwent incision and drainage in the emergency room. Surgery was consulted at the time of discharge had recommended continued drainage through the incision and he was advised to follow up with surgeon as an outpatient followup and he was discharged on doxycycline for his pneumonia as well as his abscess which was draining adequately. He was also found to have epidermal cyst on the left valle for which he was advised to follow up with surgery as an outpatient. TIME SPENT: More than 30 minutes were spent in discharging this patient. All of his questions have been answered satisfactorily. cc: Jose Kinsey MD MTDD
== END 2019-02-05 13:04 | disposition home or self-care (01) | DRG 853 ==
LOC: ED 14:09 → 3S 20:07
PROVIDERS: ATTEND Internal Medicine
CPT/HCPCS: 71020; 71046; 73560; 80048; 80053; 80069; 81001; 82009; 82150; 82550; 82805; 82948; 83036; 83605; 83690; 83735; 84100; 84484; 85025; 85379; 87040; 87070; 87077; 87186; 87205; 87275; 87276; 87449; 87804; 87899; 93005; 94640; 94761; 96365; 96367; 96375; 99285; 99291; A9270; J0696; J1815; J2060; J2270; J2543; J2800; J3370; J3475; J7030; J7040; J7042; XXXXX